=== PATIENT | female | born 1955 | race Caucasian/White ===

== ENCOUNTER → 2018-10-23 13:00 | Outpatient (CLI) | payer OTHER, SELFPAY | PROVIDERS: PCP Family Medicine; Visit Provider Nurse Practitioner Family | DX: M85.852 Other specified disorders of bone density and structure, left thigh (principal); Z78.0 Asymptomatic menopausal state | CPT/HCPCS: 77080 ==

== ENCOUNTER → 2020-11-04 14:33 | Outpatient (CLI) | payer OTHER, SELFPAY ==
--- NOTE | 2020-11-04 14:42 | DI.ECHO.S_ITS ---
Version: 1 Study ID: [id number] [place] [address] Name: AYAKA PONCE Study Date: 11/04/2020, 2: 49 PM : 1955 BP: 130 / 88 mmHg Gender: Female Height: 70 in Age: 65 Years Weight: 184 lb BSA: 2.01 mA? Ordering: FAM SINGH Referring: FAM SINGH Clinician: Ramon Rossi Reason For Study: Atrial fibrillation History: Summary Statements Normal sinus rhythm. Normal LV size, wall thickness, wall motion and LV systolic function. EF is 60-65%. Normal chamber sizes. No significant valvular abnormalities. No prior study availale for comparison. Procedure: A two-dimensional transthoracic echocardiogram with color flow and Doppler was performed. The study quality was technically adequate. There is no prior echocardiogram noted for this patient. Left Ventricle: Diastolic parameters suggest probable normal left ventricular diastolic function and normal filling pressures. Left ventricular systolic function is normal. The ejection fraction is estimated to be 60-65%. The left ventricle is normal in size and wall thickness. There are no focal wall motion abnormalities. Right Ventricle: The right ventricle is normal in size and function. Atria: There is no Doppler evidence for an interatrial shunt. Both atria are normal in size. Mitral Valve: There is trace mitral regurgitation. The mitral valve is normal in structure and function. Aortic Valve: No aortic regurgitation is present. The aortic valve is normal in structure and function. Tricuspid Valve: There is trace tricuspid regurgitation. Pulmonary artery pressures cannot be estimated because of the lack of a measurable TR jet velocity but the IVC suggests a CVP of around 3 mmHg. The tricuspid valve is normal in structure and function. Pulmonic Valve: There is no pulmonic valvular regurgitation. The pulmonic valve is not well visualized. Great Vessels: The ascending aorta could not be visualized. The aortic root is normal size. The IVC is of normal diameter and collapses greater than 50% with a sniff. This suggests a low right atrial pressure of 3 mm Hg. Pericardium/ Pleura: There is no pericardial effusion. There is no pleural effusion. 2D and M-Mode Measurements and Calculations LVIDd: 4.8 cm LVOT diam: 2.15 cm LVIDs: 3.2 cm Ao root diam: 3.0 cm IVSd: 0.75 cm LVPWd: 0.60 cm LV yang. diameter/BSA (cm/m^2): 2.37 LV sys. 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 LA A2 area: 17.7 tanker truck driver? RA long axis: 4.2 cm LA length (vol): 4.7 cm RA vol: 27.3 ml LA vol: 43.7 ml RA : 13.5 ml/mA? LA vol index: 21.7 ml/mA? Doppler Measurements and Calculations Ao V2 max: 137.3 cm/sec LVOT Max Franklin: 105.9 cm/sec Ao V2 mean: 95.7 cm/sec LV V1 max P.5 mmHg Ao V2 VTI: 28.8 cm LV V1 VTI: 24.0 cm Ao max P.5 mmHg Ao mean P.1 mmHg YARON(I,D): 3.0 tanker truck driver? YARON(V,D): 2.8 tanker truck driver? YARON indexed to BSA (cm^2/m^2): 1.51 sev ratio: 0.84 MV E max franklin: 77.9 cm/sec MV dec time: 0.25 sec MV A max franklin: 62.3 cm/sec MV E/A: 1.25 Med Peak E' Franklin: 10.0 cm/sec Lat Peak E' Franklin: 11.2 cm/sec E/e' average: 7.4 Electronically signed by: La Olvera M.D. 11/05/2020, 6: 20 AM
== END ==
PROVIDERS: PCP Family Medicine; Referring Provider Nurse Practitioner Family; Visit Provider Nurse Practitioner Family
DX: I48.91 Unspecified atrial fibrillation (principal)
CPT/HCPCS: 93306